=== PATIENT | female | born 1945 | race Caucasian/White ===

== ENCOUNTER 2019-01-29 09:20 | Emergency (ER) | payer MEDICARE, SELFPAY ==
[2019-01-29 09:21] VITALS: BP 122/59; PULSE 81; RESP 16; TEMP 36.1; O2SAT 99; BMI 24.0
--- NOTE | 2019-01-29 09:33 | CT_ITS ---
STUDY: CT BRAIN WITHOUT CONTRAST REASON FOR EXAM: Female, 73 years old. Fall. Laceration. RADIATION DOSAGE (If Supplied By Facility): CTDIvol = ( 44.99 ) mGy, DLP = ( 745.49 ) mGycm TECHNIQUE: Transaxial CT imaging of the brain was performed without administration of intravenous contrast material. Individualized dose optimization techniques were used for this CT. COMPARISON: No relevant priors. FINDINGS: Normal soft tissue structures. Normal calvarium. Normal size ventricles and extra-axial spaces for the patient's age. Normal white matter tracts of the cerebral hemispheres. Normal basal ganglia and thalami. Normal brainstem. Normal cerebellum. There is no intracranial hemorrhage. There are no findings of an acute ischemic infarction. Normal visualized paranasal sinuses. CT/Brain/Head without Contrast IMPRESSION: Normal unenhanced CT scan of the brain. Electronically Signed: Ryan Cobian MD at 10:45 EDT , Service support ,
--- NOTE | 2019-01-29 10:54 | ED.VISSUMM ---
- ER Visit Summary Date of Service: 01/29/19 Chief Complaint: [Head injury with scalp laceration] History of Present Illness: The patient is a 73 F [the emergency department with a head injury that occurred this morning. Patient was in a tub shower when she states that she had her eyes closed and lost her balance causing her to fall out of the tub shower. Patient struck her head on the vanity. No loss of consciousness. Patient denies any neck pain. She denies any visual changes. She denies any vomiting. She is not on any blood thinners. She is up-to-date on tetanus.] Physical Examination: [HEENT-PERRLA, EOMI. Cranial nerves II through XII grossly intact. TMs clear. Mucous membranes moist. No adenopathy. Patient has a 7.5 cm laceration to the top of the scalp with small amount of blood oozing. No bony step-off noted. Patient has no C-spine tenderness on palpation. Patient has normal active range of motion is painless. Cardiovascular-regular rate and rhythm without murmur or ectopy Lungs-clear to auscultation, chest wall stable without crepitus or subcu emphysema Abdomen-normoactive bowel sounds, soft, nontender, no rebound or rigidity, no peritoneal signs. Extremities-intact ?4, normal range of motion, normal pulses, atraumatic] Test Results: [CT scan of the brain without contrast was unremarkable.] Emergency Department Course and Treatment: [Laceration repair-wound sterilely draped and prepped. Wound anesthetized locally with 1% lidocaine total of 10 cc. Wound cleansed with Shur-Clens and irrigated with copious saline. Using 4-0 nylon a total of 9 single interrupted sutures placed with good wound edge approximation. Patient tired procedure well.] Treatment Plan: [Follow-up with primary care physician in 10 days for suture removal. Patient to return if increasing pain, redness, swelling, purulent drainage, or conditions worsen anyway.] Disposition: [Discharged to home in stable condition.] Impression: [Closed head injury Scalp laceration 7.5 cm with simple repair] This note was generated with [employer] software. It may contain incorrect words, spelling, and punctuation that were not noted in review of the chart prior to signing ED Disposition - Plan for ED Patient: Referrals: Elias Bobby MD [Primary Care Provider] -
--- NOTE | 2019-01-29 10:57 | ED.DCSUM_ITS ---
- ER Visit Summary Date of Service: 01/29/19 Chief Complaint: [Head injury with scalp laceration] History of Present Illness: The patient is a 73 F [the emergency department with a head injury that occurred this morning. Patient was in a tub shower when she states that she had her eyes closed and lost her balance causing her to fall out of the tub shower. Patient struck her head on the vanity. No loss of consciousness. Patient denies any neck pain. She denies any visual changes. She denies any vomiting. She is not on any blood thinners. She is up-to-date on tetanus.] Physical Examination: [HEENT-PERRLA, EOMI. Cranial nerves II through XII grossly intact. TMs clear. Mucous membranes moist. No adenopathy. Patient has a 7.5 cm laceration to the top of the scalp with small amount of blood oozing. No bony step-off noted. Patient has no C-spine tenderness on palpat ion. Patient has normal active range of motion is painless. Cardiovascular-regular rate and rhythm without murmur or ectopy Lungs-clear to auscultation, chest wall stable without crepitus or subcu emphysema Abdomen-normoactive bowel sounds, soft, nontender, no rebound or rigidity, no peritoneal signs. Extremities-intact ?4, normal range of motion, normal pulses, atraumatic] Test Results: [CT scan of the brain without contrast was unremarkable.] Emergency Department Course and Treatment: [Laceration repair-wound sterilely draped and prepped. Wound anesthetized locally with 1% lidocaine total of 10 cc. Wound cleansed with Shur-Clens and irrigated with copious saline. Using 4- 0 nylon a total of 9 single interrupted sutures placed with good wound edge approximation. Patient tired procedure well.] Treatment Plan: [Follow-up with primary care physician in 10 days for suture removal. Patient to return if increasing pain, redness, swelling, purulent drainage, or conditions worsen anyway.] Disposition: [Discharged to home in stable condition.] Impression: [Closed head injury Scalp laceration 7.5 cm with simple repair] This note was generated with [employer] software. It may contain incorrect words, spelling, and punctuation that were not noted in review of the chart prior to signing ED Disposition - Plan for ED Patient: Referrals: Elias Bobby MD [Primary Care Provider] -
--- NOTE | 2019-01-29 10:57 | ED.DEP ---
ED Disposition - Plan for ED Patient: Instructions: ED Laceration Scalp Stitch Or Stap, ED Head Injury Closed Referrals: Elias Bobby MD [Primary Care Provider] - 10 Day for suture removal
[2019-01-29 11:04] VITALS: RESP 18
== END 2019-01-29 11:19 | disposition home or self-care (01) ==
LOC: ED 09:45
PROVIDERS: Emergency Provider Emergency Medicine; Family Provider Family Medicine; PCP Family Medicine
DX: S01.01XA Laceration without foreign body of scalp, initial encounter (principal); W18.2XXA Fall in (into) shower or empty bathtub, initial encounter; Y93.E1 Activity, personal bathing and showering; Y92.9 Unspecified place or not applicable; Y99.9 Unspecified external cause status
CPT/HCPCS: 12002; 70450; 99283

== ENCOUNTER → 2020-11-10 08:15 | Outpatient (CLI) | payer MEDICARE, SELFPAY ==
--- NOTE | 2020-11-10 08:33 | RAD_ITS ---
STUDY: X-RAY - ESOPHAGUS (BARIUM SWALLOW) WITH FLUOROSCOPY REASON FOR EXAM: Female, 75 years old. OTHER DISEASE OF LARYNX TECHNIQUE: 15 view(s) of the esophagus were obtained following swallowing of barium. FLUOROSCOPY TIME (if supplied): (0:30) minutes/seconds COMPARISON: None. FINDINGS: There is no demonstrated esophageal foreign body. There is no demonstrated stricture or mucosal abnormality. Normal gastroesophageal junction, without a demonstrated hiatal hernia. The patient ingested a 12 mm tablet of barium without any difficulty. There is atherosclerotic calcification of the aortic arch with tortuosity of the descending aorta. Normal visualized pulmonary parenchyma. Normal visualized osseous structures of the thorax. RAD/Esophagus Dual Contrast IMPRESSION: Normal plain film x-ray examination (barium swallow) of the esophagus. Electronically Signed: Shaun Mendez MD at 13:43 EDT , Service support ,
== END ==
PROVIDERS: PCP Family Medicine; Referring Provider Otolaryngology; Visit Provider Otolaryngology
DX: J38.7 Other diseases of larynx (principal)
CPT/HCPCS: 74221

== ENCOUNTER 2021-03-19 12:26 | Emergency (ER) | payer MEDICARE, SELFPAY ==
[2021-03-19 12:29] VITALS: BP 148/71; PULSE 55; RESP 16; TEMP 36.6; O2SAT 100; BMI 22.9
--- NOTE | 2021-03-19 12:44 | RAD_ITS ---
INDICATION: pain after fall EXAMINATION/TECHNIQUE: X-RAY - LEFT XR Wrist Min 3 Views 3 VIEWS COMPARISON: None. FINDINGS: An impacted Colles'' fracture is noted involving the distal left radial metaphysis and additional fracture is noted involving the lower styloid.. 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 RAD/Wrist min 3 Views IMPRESSION: Colles'' fracture Electronically Signed: Cabrera Jimenez DO at 13:17 EDT Tel , Service support ,
--- NOTE | 2021-03-19 12:55 | EX.ED.UPPERE ---
HPI History of Present Illness Chief Complaint: Fall Informant: patient and family Narrative Narrative: Patient had a trip and fall while she was stepping down after reaching up high in a cabinet. She fell on outstretched hand. She states she hit her left hip but it does not hurt. She never hit her head. Her only complaint is her left wrist. She is on no anticoagulation. Ice and rest makes it better. Motion or pressing on it makes it worse. She denies numbness tingling distally. PFSH PFSH no medical history Home Medications simvastatin 20 mg PO QHS 01/29/19 [History Last Taken Unknown] omeprazole 40 mg PO DAILY 03/19/21 [History Last Taken Unknown] oxycodone-acetaminophen [Percocet] 1 tab PO Q6H PRN 3 Days #10 tab 03/19/21 [Rx Last Taken Unknown] Allergy/AdvReac Type Severity Reaction Status Date / Time No Known Allergies Allergy Verified 03/19/21 12:26 Social History Smoking Status: Never smoker ROS ROS ED Constitutional Constitutional ED: Denies frequent falls Eyes Eyes: Denies blurry vision Cardiovascular Cardiovascular: Denies chest pain Respiratory/Chest Respiratory/Chest: Denies dyspnea Gastrointestinal Gastrointestinal: Denies nausea or vomiting Musculoskeletal Musculoskeletal: Reports other Details: See history of present illness. ; Denies back pain or neck pain Integumentary Denies Abrasions or rash Neurologic Neurologic: Denies headache(s), paresthesias or weakness Hematologic/Lymphatic Hematologic/Lymphatic: Denies easy bleeding or easy bruising EXAM Physical Exam Const Vital Signs: 03/19/21 12:29 Temperature 97.8 F Temperature Source Temporal Pulse Rate 55 L Respiratory Rate 16 Blood Pressure 148/71 H Blood Pressure Mean 96 Pulse Ox 100 Oxygen Delivery Method Room Air Positive well nourished and well developed General Appearance ED: well developed and NAD HEENT normocephalic and atraumatic; Negative for trauma Neck full ROM and supple General: Negative for tenderness Chest Wall inspection of chest normal Resp normal respiratory effort GI non-tender Palpation: soft Back/Spine no CVA tenderness Thoracic Spine / Upper Back: Negative for thoracic spinal tenderness Lumbar Spine / Lower Back: Negative for lumbar spinal tenderness Extremity Extremity Narrative: Patient has Psych mental status grossly normal Skin Lesions: no lesions MDM MDM MDM Narrative Medical decision making narrative: X-rays show distal radius fracture with ulnar styloid consistent with a Colles' pattern. Patient was placed in finger traps. She was hung for a while. There was some slight improvement. She was placed in AP splints with slight volar tilt by me. She is rechecked. She has good sensation capillary refill. We will get her home with medications for pain. I will have her follow-up with orthopedics. She should return with increasing pain, swelling, numbness tingling or other concerns. Discharge Plan Triage Chief Complaint: Fall ED Provider: Tarun Pickering Dx/Rx/DC Orders Clinical Impression: Colles' fracture, Fall from slipping Instructions: Wrist Fracture Prescriptions: New oxycodone-acetaminophen [Percocet] 5-325 mg tablet 1 tab PO Q6H PRN (Reason: pain) 3 Days Qty: 10 RF: 0 No Action simvastatin 20 MG tablet 20 mg PO QHS RF: 0 omeprazole 40 mg capsule,delayed release(DR/EC) 40 mg PO DAILY RF: 0 Primary Care Provider: Elias Bobby Referrals: Elias Bobby MD [Primary Care Provider] - Turner Phillips MD [STAFF PHYSICIAN] - 3-5 Days Disposition Disposition: Home, Self Care Discharge Date/Time: 03/19/21 16:21
[2021-03-19] MEDS: oxyCODONE 5 MG Tablet PO (12:57)
[2021-03-19 16:20] VITALS: BP 120/87; PULSE 64; RESP 16; O2SAT 98
== END 2021-03-19 16:21 | disposition home or self-care (01) ==
PROVIDERS: Emergency Provider Emergency Medicine; PCP Family Medicine
DX: S52.532A Colles' fracture of left radius, initial encounter for closed fracture (principal); S52.612A Displaced fracture of left ulna styloid process, initial encounter for closed fracture; W17.89XA Other fall from one level to another, initial encounter; Y93.9 Activity, unspecified; Y92.9 Unspecified place or not applicable; Y99.9 Unspecified external cause status; Z79.899 Other long term (current) drug therapy
CPT/HCPCS: 29125; 73110; 99283

== ENCOUNTER 2021-05-29 13:00 | Outpatient (RCR) | payer MEDICARE, SELFPAY ==
--- NOTE | 2021-05-16 17:20 | HP.OTEVAL_ITS ---
Patient's Visit Information HERNANDEZ SALMERON is a 76 year old F, referred to Occupational Therapy by SHERI SIBLEY, with a diagnosis of left intra-articular fracture- distal radius fx. Date of Evaluation: 05/14/21 Occupational Therapist: Laurel Bloom, AYDEE/Kacie, CHT - Subjective This 76 year old female was seen for OT eval with dx of intra artic fx of distal radius on Mar.19 pt states she was standing on a chair and lost her balance she fell- pt states she went to ER. pt went to Ortho and casted for short time but than was referred to hand specialist and she had sx on Apr 17 2021. pt underwent ORIF. pt arrives without brace on states she does have a wrist brace and it fits well- pt would like to return to using her left arm for ADLs and IADLS. pt 3 weeks and 6 days s/p - Pain left hand 4 Pain Intensity Range: 3, 6 - ROM Forearm: right/left WFL Wrist: right 60/70 left 30/30 CMC: right 25 left 20 MP: right 40 left 40 IP: right 60 left 35 Opposition: right 10 left 10 - Strength Employment Service Specialist: right 35# left NT Lateral Pinch: right 6# left NT Tripod Pinch: right 2# left NT Strength Comments: left will test at week 6 s/p - Sensation Sensation Comments: denies - Quick DASH-Disab of Arm,Shoulder& Hand Quick DASH Score: 36.3625 - Goals Goal:: PT will demo an increase in trestle mechanic strength by 20# to increase independent with basic occupations of daily living to return pt to PLOF by D/C. Pt will demo an increase in lateral and tripod pinch by 2# to increase pts independent with opening baggies, containers at PLOF by D/C. Goal:: Pt will demo an increase in wrist ROM equal to unaffected wrist to return pt to PLOF with grooming, dressing and home mtg tasks by D/C. Goal:: Pt will report pain no greater than 1/10 with use of affected hand with BADLs and IADLs by d/c. Goal:: Pt will demo understanding of scar mtg. by end of 2nd session to increase tissue extensibility to limit scar adhesions and allow full tendons function by d/c. Goal:: Pt will demo understanding of joint protection and ergonomics when performing BADLs and IADLs by d/c - Rehabilitation General Assessment: pt demo with limited left wrist ROM and strength following a ORIF of left distal radius fx. pt is 3 weeks and 6 days s/p ORIF- pt demo need for assistance wit ADLs and IADls due to her recent injury. Pt would benefit from skilled OT services 1-2x week for 6 weeks to return pts functional ROM and strength to perform her ADls and IADls. Pt agrees to POC. Rehabilitation Potential: Excellent - Anticipated Interventions A/AAROM/PROM, Strengthening, Scar Care, Triggerpoint Release, Orthoses, Joint Protection/Energy Conservation, Ergonomic Education, ADL Training, Education re assistive Equipment - Visit Plan Frequency: 1-2x /Week Duration: 4 Weeks General Plan: Transition to cock-up wrist plan to begin wrist forearm and finger ROM unrestricted. PWB less than 2 pounds. 6 weeks WBAT wean from splint TEXT: Thank you for the opportunity to evaluate your patient. For Medicare and Medicare HMO plans, please review the plan of care and approve it. It will need to be FAXED BACK to us at [phone] for Medicare purposes. Please let me know if there are questions or concerns regarding this plan of care. Physician Signature: Date:
--- NOTE | 2021-05-29 14:25 | HP.OTDCSUM_ITS ---
It has been my pleasure to treat HERNANDEZ SALMERON under orders from SHERI SIBLEY, for the diagnosis of left intra-articular fracture- distal radius fx for a total of 4 visit(s). Please see the following information for a summary of their discharge status. % Improvement: 95 Objective/Function: left wrist 45/45 increase from 30/30. left podiatric medicine professor 15# 1st attempt testing right 35#. left lateral pinch 6#. left tripod pinch 4#. pt has made great gains in he ROM and strength is fair- pt reports she does not let her injury limit her- states she is IND. with ADLs and IADLS. Due to high co pay pt ok with HEP Patient Goals: Regain Mobility, Use Hand/Wrist/Arm Normally Again Goal:: PT will demo an increase in podiatric medicine professor strength by 20# to increase independent with basic occupations of daily living to return pt to PLOF by D/C. pt met goal. Pt will demo an increase in lateral and tripod pinch by 2# to increase pts independent with opening baggies, containers at PLOF by D/C. pt met goal Goal:: Pt will demo an increase in wrist ROM equal to unaffected wrist to return pt to PLOF with grooming, dressing and home mtg tasks by D/C. progressing Goal:: Pt will report pain no greater than 1/10 with use of affected hand with BADLs and IADLs by d/c. goal met Goal:: Pt will demo understanding of scar mtg. by end of 2nd session to increase tissue extensibility to limit scar adhesions and allow full tendons function by d/c. Goal:: Pt will demo understanding of joint protection and ergonomics when performing BADLs and IADLs by d/c Plan: D/c with HEP Discharge Comments: pt was seen for 4 OT visits due to high co-pay- pt demo great progress with her ROM and strength. Therapy gave HEP with t-band and task to increase podiatric medicine professor strength. pt demo understanding and agrees to D/C with [facility] due to high co-pay. If there are questions or concerns regarding this patient's occupational therapy, please fell free to call me at [phone]. Thank you for the referral of this patient. Sincerely, Laurel Bloom, OTR/L, CHT
== END 2021-05-29 19:00 | disposition home or self-care (01) ==
LOC: OT 13:00
PROVIDERS: PCP Family Medicine
DX: S52.572D Other intraarticular fracture of lower end of left radius, subsequent encounter for closed fracture with routine healing (principal); Z98.890 Other specified postprocedural states; Z87.81 Personal history of (healed) traumatic fracture
CPT/HCPCS: 97110; 97140; 97166; 97530

== ENCOUNTER 2023-07-19 15:52 | Emergency (ER) | payer MEDICARE, SELFPAY ==
[2023-07-19 15:53] VITALS: BP 111/66; PULSE 81; RESP 16; TEMP 36.3; O2SAT 98; BMI 22.1
[2023-07-19 16:15] VITALS: O2SAT 98
--- NOTE | 2023-07-19 16:15 | EKG12_ITS ---
Test Reason : CP Blood Pressure : / mmHG Vent. Rate : 069 BPM Atrial Rate : 069 BPM P-R Int : 136 ms QRS Dur : 074 ms QT Int : 368 ms P-R-T Axes : 061 016 057 degrees QTc Int : 394 ms Sinus rhythm with Premature atrial complexes Otherwise normal ECG Confirmed by GLADYS KAMINSKI, KARI ([id number]), restaurant expeditor KEELY ARCE ([id number]) on 07/21/2023 9:50:15 AM Referred By: AYANA/RON Confirmed By:KARI GRAHAM MD
[2023-07-19 16:28] LABS: Absolute Neutrophil Count 3.9 X10^3/uL (2.0-7.7); Basophil# 0.03 X10^3/uL; Basophil% 0.5 % (0-1); Eosinophil# 0.12 X10^3/uL; Hematocrit 40.5 % (37-47); Hemoglobin 13.2 g/dL (12.0-15.0); Mean Corp Hgb Conc 32.6 g/dL (32-36); Mean Corpuscular Hgb 30.7 pg (27.0-32.0); Mean Corpuscular Volume 94.2 fL (81-99); Mean Platelet Vol. 10.1 fl (6.2-12.0); Monocyte# 0.47 X10^3/uL; Monocyte% 7.8 % (0-10); NRBC Flagged by Analyzer 0 % (0-5); Neutrophil # 3.87 X10^3/uL (2.7-7.7); Neutrophil % 64.5 % (47-70); Platelet Count 192 K/mm3 (150-450); RBC Distribution Width CV 12.6 % (11.6-14.6); RBC Distribution Width SD 43.6 fl (35.1-43.9)
[2023-07-19 16:44] LABS: Anion Gap 2 (5-15); BUN 18 mg/dL (7-18); BUN/Creat Ratio 20.3 RATIO (10-20); Calcium,Total 10.2 mg/dL (8.5-10.1); Chloride 112 mmol/L (98-107); Creatinine, Serum 0.89 mg/dL (0.55-1.02); EST Glomerular Filtration Rate 66 mL/min (>60); Est Glom Filt Rate - Afr Amer 79 mL/min (>60); Estimated Creatinine Clearance 52.29 ml/min; Glucose 82 mg/dL (74-106); Potassium 3.8 mmol/L (3.5-5.1); Sodium Level 143 mmol/L (136-145); Troponin-I HS (w/2H Reflex) 7 pg/mL (3.0-54.0)
--- NOTE | 2023-07-19 16:45 | RAD_ITS ---
INDICATION: chest pain EXAMINATION/TECHNIQUE: X-RAY - XR Chest 1 View COMPARISON: None. FINDINGS: LINES/DEVICES: None. LUNGS: No consolidation. No pneumothorax. MEDIASTINUM: Aorta is atherosclerotic. CARDIAC SILHOUETTE: Not enlarged. BONES AND SOFT TISSUES: No acute abnormalities. Relative lucency in the right upper abdomen is most likely bowel and/or technical. RAD/Chest 1 View (Portable) IMPRESSION: No evidence of active intrathoracic disease. Relative lucency in right upper abdomen is most likely bowel and or technical artifactual. If there is any concern for free air or abdominal process, CT abdomen and pelvis may be helpful. Electronically Signed: Caity Diaz MD at 17:41 EST ,
--- NOTE | 2023-07-19 17:35 | EDS_ITS ---
HPI History of Present Illness Chief Complaint: Palpitations Narrative Narrative: 78-year-old female presenting with palpitations. She states that last night at about 1 AM she had about 2 hours of palpitations and dyspepsia. She reports she only ate a salad prior to going to bed. She states she did not eat much yesterday. Patient states that her ENT physician told her she has silent GERD and she is on omeprazole. She did not anything that would trigger GERD but did not feel like she had acid reflux last evening. She has had a chronic cough which she is told is from GERD. No fevers or chills. Patient feels well. Patient has had any symptoms today but she told her family this and they urged her to go to the emergency room for evaluation. Patient with no cardiac history. No pulmonary history that she knows of. Patient otherwise physically healthy. She denied having any chest pain or shortness of breath but did complain of palpitations PFSH PFS Medical History Chronic pain High cholesterol Home Medications simvastatin 20 mg tablet 20 mg PO QHS 01/29/19 [History Last Taken Unknown] omeprazole 40 mg capsule,delayed release 40 mg PO DAILY 03/19/21 [History Last Taken Unknown] oxycodone-acetaminophen 5 mg-325 mg tablet (Percocet) 1 tab PO Q6H PRN pain 3 days #10 tabs 03/19/21 [Rx Last Taken Unknown] Allergy/AdvReac Type Severity Reaction Status Date / Time No Known Allergies Allergy Verified 07/19/23 15:57 Surgical History H/O section Social History Smoking Status: Never smoker ROS ROS ED Constitutional Constitutional ED: Denies chills, fever(s) or sweats Eyes Eyes: Denies blurry vision or change in vision ENT ENT ED: Denies ear pain or sore throat Cardiovascular Cardiovascular: Reports palpitations; Denies chest pain Respiratory/Chest Respiratory/Chest: Denies cough, dyspnea or sputum Gastrointestinal Gastrointestinal: Denies abdominal pain, constipation, diarrhea, nausea or vomiting Genitourinary Genitourinary ED: Denies dysuria, hematuria or urinary frequency Musculoskeletal Musculoskeletal: Denies arthralgias, myalgias or neck pain Integumentary Denies abscess, Abrasions or rash Neurologic Neurologic: Denies headache(s), paresthesias or weakness Psychiatric Psychiatric: Denies anxiety, depression, suicidal ideation or suicidal thoughts Endocrine Endocrinology: Denies polydipsia or polyuria EXAM Physical Exam Const Vital Signs: 07/19/23 15:53 07/19/23 16:15 Temperature 97.4 F L Temperature Source Temporal Pulse Rate 81 Respiratory Rate 16 Blood Pressure 111/66 Blood Pressure Mean 81 Pulse Ox 98 98 Oxygen Delivery Method Room Air Room Air Positive well nourished General Appearance ED: NAD HEENT Reports moist mucous membranes normocephalic Eyes PERRL and EOMs intact bilaterally Chest Wall inspection of chest normal Resp normal respiratory effort and clear to auscultation bilaterally Auscultation: Negative for rales, rhonchi or wheezes Cardio regular rate and regular rhythm GI normal to inspection, nondistended, normoactive bowel sounds Neuro oriented x3 and CN's II-XII intact bilaterally Sensorium / Orientation: awake and alert Psych mental status grossly normal Skin no rashes or lesions noted and no wounds Heart Score History: Slightly/Non-Suspicious ECG: Normal Age: </= 45 years Risk Factors: 1 or 2 Risk Factors Troponin: </= Normal Limit Score: 1 MDM MDM MDM Narrative Medical decision making narrative: Patient presenting with 2 hours of palpitations last evening. She states she feels well today. No fevers or chills. No cough or shortness of breath. She does not have any chest pain. EKG was obtained and on my interpretation this is a normal sinus rhythm with ventricular to 69 bpm without sign of ischemic change. Differential includes acute coronary syndrome, GERD, pneumonia, gastritis. Patient having no symptoms of cold or flu. High-sensitivity troponin was obtained and is 7. CBC and BMP are unremarkable. Given that she had 2 hours of symptoms last evening and a negative troponin with no symptoms all day I do not believe she needs a delta troponin. Patient PERC negative. Patient low risk with a heart score of 1. I feel she stable for outpatient follow-up. Return precautions were discussed. Impression: 1. Palpitations 2. Dyspepsia Lab Data Labs: Laboratory Results - last 24 hr 07/19/23 16:13 WBC 6.0 RBC 4.30 Hgb 13.2 Hct 40.5 MCV 94.2 MCH 30.7 MCHC 32.6 RDW Std Deviation 43.6 RDW Coeff of Gareth 12.6 Plt Count 192 MPV 10.1 Immature Gran % (Auto) 0.200 Neut % (Auto) 64.5 Lymph % (Auto) 25.0 [place] % (Auto) 7.8 Eos % (Auto) 2.0 Baso % (Auto) 0.5 Absolute Neuts (auto) 3.9 Absolute Lymphs (auto) 1.50 Nucleated RBC % 0 Sodium 143 Potassium 3.8 Chloride 112 H Carbon Dioxide 29.0 Anion Gap 2 L BUN 18 Creatinine 0.89 Estim Creat Clear Calc 52.29 Est GFR (MDRD) Af Amer 79 Est GFR (MDRD) Non-Af 66 BUN/Creatinine Ratio 20.3 H Glucose 82 Calcium 10.2 H Troponin I High Sens 7 Discharge Plan Triage Chief Complaint: Palpitations ED Provider: Kashif Coleman Dx/Rx/DC Orders Prescriptions: No Action simvastatin 20 MG tablet 20 mg PO QHS Patient Comments: Take 1 tablet by mouth nightly omeprazole 40 mg capsule,delayed release(DR/EC) 40 mg PO DAILY Patient Comments: take 1 capsule by mouth once daily before meals oxycodone-acetaminophen [Percocet] 5-325 mg tablet 1 tab PO Q6H PRN (Reason: pain) 3 Days Qty: 10 0RF Primary Care Provider: Elias Bobby Referrals: Elias Bobby MD [Primary Care Provider] -
[2023-07-19 17:53] VITALS: BP 106/54; PULSE 70; RESP 16; O2SAT 95
[2023-07-19 18:22] LABS: Reflex Troponin-HS? (from REC) Y
[2023-07-19 18:34] VITALS: BP 106/54; PULSE 70; RESP 18; O2SAT 95
== END 2023-07-19 18:34 | disposition home or self-care (01) ==
PROVIDERS: Emergency Provider Student in an Organized Health Care Education/Training Program; PCP Family Medicine; Visit Provider Student in an Organized Health Care Education/Training Program
DX: R00.2 Palpitations (principal); R10.13 Epigastric pain; E78.00 Pure hypercholesterolemia, unspecified; K21.9 Gastro-esophageal reflux disease without esophagitis; Z79.899 Other long term (current) drug therapy
CPT/HCPCS: 71045; 80048; 84484; 85025; 93005; 99284; A4216